=== PATIENT | female | born 1975 | race American Indian/Alaskan Native ===

== ENCOUNTER 2019-01-15 00:18 | Emergency (ER) | payer SELFPAY ==
[2019-01-15] MEDS ORDERED: ALBUTEROL 2.5 MG/3 ML NEBU IH ONE (01:13)
[2019-01-15] MEDS ORDERED: IPRATROPIUM 0.02% NEBU 2.5 ML IH ONE (01:13)
--- NOTE | 2019-01-15 01:19 | Emergency Department Report ---
<XOCHILT HIGGINS - Last Filed: 01/15/19 03:15> ED Asthma HPI - General Chief Complaint: Adult Asthma Stated Complaint: ASTHMA Time Seen by Provider: 01/15/19 01:02 Source: patient, EMS Mode of arrival: Stretcher Limitations: No Limitations - History of Present Illness Initial Comments: Patient is a 43-year-old female presents emergency room with complaints of an asthma exacerbation that began tonight. She has associated shortness of breath, wheezing, chest tightness, dry cough, chest congestion, rhinorrhea. She denies any fever, leg swelling. She denies any sick contacts. She denies any recent travel, recent surgery, hormone use. She states that she has not had an asthma exacerbation in 8 years. She states she previously used to use albuterol. She states that she has not had to be admitted for her asthma since elementary school. She has had no prior intubations. Patient was given 5 of albuterol, 2 g of magnesium, Decadron prior to arrival by EMS. - Related Data Home Medications Medication Instructions Recorded Confirmed Last Taken metroNIDAZOLE [Flagyl] 250 mg PO BID 07/08/13 07/08/13 07/06/13 Previous Rx's Medication Instructions Recorded Last Taken Type HYDROcodone/APAP 5-325 [[place] 1 each PO Q6HR PRN #10 tablet 07/09/13 Unknown Rx 5-325 mg TAB] Ibuprofen [Motrin] 600 mg PO Q8H PRN #14 tablet 07/09/13 Unknown Rx ALBUTEROL Inhaler (OR & NICU) 2 puff IH QID PRN #8.5 gram 01/15/19 Unknown Rx [ProAir HFA Inhaler] Albuterol Sulfate [Albuterol 0.63% 0.63 mg IH TID PRN #1 box 01/15/19 Unknown Rx NEBS] Cyclobenzaprine HCl [Flexeril 5 MG 5 mg PO QHS PRN #10 tablet 01/15/19 Unknown Rx TAB] Nebulizer and Compressor [Home 1 each MC TID #1 each 01/15/19 Unknown Rx Nebulizer Plus Sidestream] predniSONE [Deltasone] 20 mg PO QDAY 9 Days #18 tab 01/15/19 Unknown Rx Allergies Allergy/AdvReac Type Severity Reaction Status Date / Time No Known Allergies Allergy Verified 07/08/13 19:52 ED Review of Systems Comment: All other systems reviewed and negative ED Past Medical Hx - Past Medical History Previous Medical History?: Yes Hx Hypertension: Yes Hx Pulmonary Embolism: Yes Hx Asthma: Yes - Surgical History Past Surgical History?: Yes Hx Cholecystectomy: Yes - Social History Smoking Status: Former Smoker - Medications Home Medications: Home Medications Medication Instructions Recorded Confirmed Last Taken Type metroNIDAZOLE [Flagyl] 250 mg PO BID 07/08/13 07/08/13 07/06/13 History HYDROcodone/APAP 5-325 [[place] 1 each PO Q6HR PRN #10 tablet 07/09/13 Unknown Rx 5-325 mg TAB] Ibuprofen [Motrin] 600 mg PO Q8H PRN #14 tablet 07/09/13 Unknown Rx ALBUTEROL Inhaler (OR & NICU) 2 puff IH QID PRN #8.5 gram 01/15/19 Unknown Rx [ProAir HFA Inhaler] Albuterol Sulfate [Albuterol 0.63% 0.63 mg IH TID PRN #1 box 01/15/19 Unknown Rx NEBS] Cyclobenzaprine HCl [Flexeril 5 MG 5 mg PO QHS PRN #10 tablet 01/15/19 Unknown Rx TAB] Nebulizer and Compressor [Home 1 each MC TID #1 each 01/15/19 Unknown Rx Nebulizer Plus Sidestream] predniSONE [Deltasone] 20 mg PO QDAY 9 Days #18 tab 01/15/19 Unknown Rx ED Physical Exam - General Limitations: No Limitations General appearance: alert, in no apparent distress - Head Head exam: Present: atraumatic, normocephalic - Eye Eye exam: Present: normal appearance - ENT ENT exam: Present: mucous membranes moist - Respiratory Respiratory exam: Present: respiratory distress (mild), decreased breath sounds (poor air movement bilaterally), other (speaking in full sentences). Absent: rales, rhonchi, stridor - Cardiovascular Cardiovascular Exam: Present: normal rhythm, tachycardia, normal heart sounds. Absent: systolic murmur, diastolic murmur, rubs, gallop - Neurological Exam Neurological exam: Present: alert, oriented X3 - Psychiatric Psychiatric exam: Present: normal affect, normal mood - Skin Skin exam: Present: warm, dry, intact ED Course - Reevaluation(s) Reevaluation #1: 01/15/19 02:35 After continuous nebulizer treatment patient's breath sounds have significantly improved, patient has good air movement, wheezing has resolved, patient states that she feels much better, she states she no longer has shortness of breath or chest tightness, patient states that she does have left shoulder pain, she states that she feels like she pulled a muscle in her left shoulder on moving houses, she denies any fall or injury, patient has full range of motion of the left upper extremity, patient is neurovascularly intact, no obvious joint laxity, patient has tenderness to palpation over the left trapezius muscle, no crepitus, no deformity, no ecchymosis 01/15/19 03:03 I was informed by nursing staff that when she went to give patient her discharge instructions patient states that she suddenly began to have right sided chest pain which she describes as a sharp stabbing sensation and states the patient became tearful. Patient states that she has a history of PE during 6 months of multiple years ago. ED Medical Decision Making - Medical Decision Making pt signed out to Dr. Katherine Singleton pending labs ED Disposition Clinical Impression: Chest pain Asthma Qualifiers: Asthma severity: unspecified severity Asthma persistence: unspecified Asthma complication type: with acute exacerbation Qualified Code(s): J45.901 - Unspecified asthma with (acute) exacerbation Strain of left trapezius muscle Qualifiers: Encounter type: initial encounter Qualified Code(s): S46.812A - Strain of other muscles, fascia and tendons at shoulder and upper arm level, left arm, initial encounter Disposition: TO HOME OR SELFCARE Is pt being admited?: No Does the pt Need Aspirin: No Condition: Stable Instructions: Asthma (ED), Muscle Strain (ED), Chest Pain (ED) Additional Instructions: Please take medication as prescribed. Do not drive or operate heavy machinery while taking muscle laxer. Increase your fluid intake over the next several days. may use ice pack, heating pad, rest, epsom salt bath. Follow-up with a primary care doctor in the next 2-3 days. Return to the emergency room immedi ately for any new or worsening symptoms. Prescriptions: Cyclobenzaprine HCl [Flexeril 5 MG TAB] 5 mg PO QHS PRN #10 tablet PRN Reason: Muscle Spasm Albuterol Sulfate [Albuterol 0.63% NEBS] 0.63 mg IH TID PRN #1 box PRN Reason: Wheezing predniSONE [Deltasone] 20 mg PO QDAY 9 Days #18 tab Nebulizer and Compressor [Home Nebulizer Plus Sidestream] 1 each MC TID #1 each ALBUTEROL Inhaler (OR & NICU) [ProAir HFA Inhaler] 2 puff IH QID PRN #8.5 gram PRN Reason: Shortness Of Breath Referrals: [facility], [Provider Group] - 2-3 Days [facility] [Outside] - 2-3 Days [facility] [Outside] - 2-3 Days Time of Disposition: 02:38 Print Language: SLOVAK <KARSON SINGLETON - Last Filed: 01/15/19 04:40> ED Review of Systems ROS: Stated complaint: ASTHMA Other details as noted in HPI ED Course Vital Signs 01/15/19 01/15/19 01/15/19 00:10 00:16 00:22 Temperature 97.6 F Pulse Rate 78 98 H Pulse Rate [ Bilateral Throughout] Respiratory 16 25 H Rate Respiratory Rate [Bilateral Throughout] Blood Pressure 105/69 Blood Pressure 105/69 [Left] O2 Sat by Pulse 100 100 100 Oximetry 01/15/19 01/15/19 01/15/19 00:30 00:46 01:00 Temperature Pulse Rate 86 82 65 Pulse Rate [ Bilateral Throughout] Respiratory 34 H 15 14 Rate Respiratory Rate [Bilateral Throughout] Blood Pressure 105/69 105/69 105/69 Blood Pressure [Left] O2 Sat by Pulse 100 100 100 Oximetry 01/15/19 01/15/19 01/15/19 01:16 01:30 01:34 Temperature Pulse Rate 92 H 89 Pulse Rate [ 76 Bilateral Throughout] Respiratory Rate Respiratory 26 H Rate [Bilateral Throughout] Blood Pressure 103/70 Blood Pressure [Left] O2 Sat by Pulse 100 100 Oximetry 01/15/19 01/15/19 01/15/19 01:46 02:00 02:16 Temperature Pulse Rate 79 84 95 H Pulse Rate [ Bilateral Throughout] Respiratory 13 22 24 Rate Respiratory Rate [Bilateral Throughout] Blood Pressure Blood Pressure [Left] O2 Sat by Pulse 100 100 100 Oximetry 01/15/19 01/15/19 01/15/19 02:30 02:46 03:00 Temperature Pulse Rate 107 H 93 H 85 Pulse Rate [ Bilateral Throughout] Respiratory 13 24 Rate Respiratory Rate [Bilateral Throughout] Blood Pressure 103/70 103/70 99/68 Blood Pressure [Left] O2 Sat by Pulse 100 100 99 Oximetry 01/15/19 03:16 Temperature Pulse Rate 95 H Pulse Rate [ Bilateral Throughout] Respiratory 19 Rate Respiratory Rate [Bilateral Throughout] Blood Pressure 99/68 Blood Pressure [Left] O2 Sat by Pulse 100 Oximetry ED Medical Decision Making - Lab Data Result diagrams: 01/15/19 03:14 01/15/19 03:14 Laboratory Results - last 24 hr 01/15/19 01/15/19 01/15/19 03:14 03:14 03:14 WBC 9.3 RBC 3.87 Hgb 13.2 Hct 39.3 MCV 102 H MCH 34 H MCHC 34 RDW 13.6 Plt Count 210 Seg Neutrophils % Speaker Wirer PT 13.2 INR 1.01 APTT 29.5 D-Dimer 135.00 Sodium 139 Potassium 3.1 L Chloride 105.8 Carbon Dioxide 21 L Anion Gap 15 BUN 7 Creatinine 0.7 Estimated GFR > 60 BUN/Creatinine Ratio 10 Glucose 162 H Calcium 8.7 Total Bilirubin 0.40 AST 27 ALT 16 Alkaline Phosphatase 65 Troponin T < 0.010 Total Protein 7.2 Albumin 4.2 Albumin/Globulin Ratio 1.4 - Medical Decision Making I personally evaluated Ms. Barbosa. Heart rate 75 bpm respiratory rate 16 breaths per minute. D-dimer negative. EKG unremarkable. She is given reassurance. She is concerned for pulmonary embolism. She developed pulmonary embolism during and previous occasion. She will be discharged with albuterol MDI and prednisone taper and albuterol nebulizer solution. Critical care attestation.: If time is entered above; I have spent that time in minutes in the direct care of this critically ill patient, excluding procedure time.
--- NOTE | 2019-01-15 01:35 | XRay Report ---
CHEST 1 VIEW INDICATION / CLINICAL INFORMATION: cough, wheezing. COMPARISON: None available. FINDINGS: SUPPORT DEVICES: None. HEART / MEDIASTINUM: No significant abnormality. LUNGS / PLEURA: No significant pulmonary or pleural abnormality. No pneumothorax. ADDITIONAL FINDINGS: No significant additional findings. IMPRESSION: 1. No acute findings. Signer Name: Shree Lemos MD Signed: 01/15/2019 1:31 AM Workstation Name: [id number]
[2019-01-15] MEDS ORDERED: CYCLOBENZAPRINE 10 MG TAB PO ONE (02:33)
[2019-01-15 03:35] LABS: Hematocrit 39.3 % (30.3-42.9); Hemoglobin 13.2 gm/dl (10.1-14.3); Mean Corpuscular HGB Conc 34 % (30-34); Mean Corpuscular Volume 102 fl (79-97); Platelet Count 210 K/mm3 (140-440); Red Blood Count 3.87 M/mm3 (3.65-5.03); Red Cell Distribution Width 13.6 % (13.2-15.2)
[2019-01-15 03:48] LABS: Alanine Aminotransferase 16 units/L (7-56); Albumin 4.2 g/dL (3.9-5); BUN/Creatinine Ratio 10; Blood Urea Nitrogen 7 mg/dL (7-17); Calcium 8.7 mg/dL (8.4-10.2); Hemolysis Index 3
[2019-01-15 03:52] LABS: INR 1.01 (0.87-1.13)
[2019-01-15 03:53] LABS: Partial Thromboplastin Time 29.5 Sec. (24.2-36.6)
[2019-01-15 04:42] VITALS: BP 97/61
[2019-01-15 04:59] LABS: Band Neutrophils # (Manual) 0.3 K/mm3; Basophils % (Manual) 0 % (0.0-1.8); Eosinophils % (Manual) 0 % (0.0-4.3); Total Cells Counted 100
[2019-01-15 05:00] LABS: Platelet Estimate Consistent w Auto
== END 2019-01-15 05:01 | disposition home or self-care (01) ==
LOC: ED 00:18
DX: S46.812A Strain of other muscles, fascia and tendons at shoulder and upper arm level, left arm, initial encounter (principal); J45.909 Unspecified asthma, uncomplicated; I10 Essential (primary) hypertension; Z86.711 Personal history of pulmonary embolism; Z90.49 Acquired absence of other specified parts of digestive tract; Z79.899 Other long term (current) drug therapy; X58.XXXA Exposure to other specified factors, initial encounter; Y93.89 Activity, other specified; Y92.89 Other specified places as the place of occurrence of the external cause; Y99.8 Other external cause status
CPT/HCPCS: 36415; 71045; 80053; 84484; 85007; 85025; 85379; 85610; 85730; 93005; 93010; 94644

== ENCOUNTER 2020-05-22 15:52 | Emergency (ER) | payer OTHER ==
[2020-05-22 16:26] VITALS: BP 115/73
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
== END 2020-05-22 19:10 | disposition home or self-care (01) ==
LOC: ED 15:52
DX: S39.012A Strain of muscle, fascia and tendon of lower back, initial encounter (principal); S16.1XXA Strain of muscle, fascia and tendon at neck level, initial encounter; R07.89 Other chest pain; I10 Essential (primary) hypertension; J45.909 Unspecified asthma, uncomplicated; Z87.891 Personal history of nicotine dependence; Z90.49 Acquired absence of other specified parts of digestive tract; Z79.899 Other long term (current) drug therapy; V49.49XA Driver injured in collision with other motor vehicles in traffic accident, initial encounter; Y92.410 Unspecified street and highway as the place of occurrence of the external cause; Y93.89 Activity, other specified; Y99.8 Other external cause status
CPT/HCPCS: 71046; 72040; 72100